=== PATIENT | female | born 1955 | race Two or more races ===

== ENCOUNTER 2020-03-26 13:34 | Emergency (ER) | payer OTHER ==
[~2020-03-26] VITALS: Ht 154.9 cm; Wt 69.9 kg
[2020-03-26] MEDS ORDERED: PEPCID AC20 MG (13:44)
[2020-03-26] MEDS ORDERED: CIPRO500 MG (13:45)
[2020-03-26] MEDS ORDERED: FLAGYL500MG (13:45)
[2020-03-26] MEDS ORDERED: INTESTINEX680 M2 (13:46)
== END 2020-03-26 17:57 | disposition home or self-care (01) ==
LOC: ER 13:34
DX: K57.30 Diverticulosis of large intestine without perforation or abscess without bleeding (principal); Z03.818 Encounter for observation for suspected exposure to other biological agents ruled out